=== PATIENT | female | born 1990 | race Caucasian/White ===

== ENCOUNTER 2016-06-15 19:56 | Emergency (ER) ==
--- NOTE | 2016-06-15 20:59 | PROVIDER DOCUMENTATION ---
HPI-General Adult - General Chief Complaint: General Adult Stated Complaint: GENERAL Time Seen by Provider: 06/15/16 20:45 Allergies/Adverse Reactions: Patient Allergies Allergy/AdvReac Type Severity Reaction Status Date / Time egg Allergy Unknown Verified 06/15/16 22:49 Sulfa (Sulfonamide Allergy Unknown Verified 06/15/16 22:49 Antibiotics) amoxicillin [Amoxicillin] AdvReac Severe HEADACHE Verified 06/15/16 22:49 Home Medications: Home Medication List Medication Instructions Recorded Confirmed Last Taken Type Desogestrel-Ethinyl Estradiol 1 each PO DAILY 07/17/12 06/15/16 06/15/16 History [Apri] - History of Present Illness -Gen Adult Nature of Presenting Problems: Pt has multiple complaints. SOB, leg pain, night sweats, and lumps in left breasts for which she is seeing an obgyn and is going to have a mammogram. She denies acute SOB but is on BC and worried about clots Review of Systems - Adult - REVIEW OF SYSTEMS - ADULT Constitutional: reports: see HPI, fatique, night sweats. denies: chills, fever , weight gain, weight loss Eyes: reports: no symptoms reported. denies: discharge, dry eyes, decreased vision, blurred vision, double vision, eye pain, redness Ears, Nose, Mouth & Throat: reports: no symptoms reported. denies: ear discharge, hearing loss, tinnitus, sinus problem, nose pain, mouth swelling, hoarseness, throat swelling Cardiovascular: reports: no symptoms reported. denies: chest pain, edema, heart murmur, irregular heart rate, orthopnea, palpitations, poor circulation, PND, syncope Respiratory: reports: see HPI, shortness of breath. denies: chronic cough, cough, dyspnea on exertion, excessive sputum production, hemoptysis, pleurisy, wheezing Gastrointestinal: reports: no symptoms reported. denies: abdominal pain, hematemesis, constipation, diarrhea, frequent heartburn, nausea, rectal bleeding , vomiting Genitourinary: reports: no symptoms reported. denies: dysuria, discharge, frequency, flank pain, frequent UTI's, hematuria, incontinence, urinary retention, urgency Musculoskeletal: reports: no symptoms reported. denies: frequent leg cramps, joint pain, joint swelling, muscle aches, muscle weakness, neck pain Integumentary: reports: no symptoms reported. denies: hives, hair loss, itching , nail changes, rash, skin sores/ulcer, skin thickening Neurological: reports: no symptoms reported. denies: ataxia, dizziness/vertigo , headache/migraines, loss of balance, numbness, seizure, slurred speech, syncope, tremors Psychiatric: reports: no symptoms reported. denies: anxiety, alcohol/drug dependence, depression, emotional problems, panic attacks, suicidal thoughts Endocrine: reports: no symptoms reported. denies: change in skin pigment, excessive sweating, goiter, cold intolerance, heat intolerance, increased hunger , increased thirst, polyuria Hematologic/Lymphatic: reports: no symptoms reported. denies: blood clots, easy bruising, low blood count, lymphedema, prolonged bleeding, transfusions Allergic/Immunologic: reports: no symptoms reported. denies: allergic reactions , allergic rhinitis, asthma, eczema, frequent infections, hay fever, positive PPD, urticaria All Other Systems: Reviewed and Negative (lumps in left breast) Past History - Adult - PAST MEDICAL HISTORY-ADULT Review of Records: reports: Old Records Reviewed, Nursing Assessment Review, Medications Reviewed, Social history reviewed & non-contributory. Major Childhood Illnesses: reports: denies history Cardiovascular: reports: denies history Respiratory: reports: bronchitis Gastrointestinal: reports: denies history Obstetrical/Gynecological: reports: denies history Genitourinary: reports: denies history Musculoskeletal: reports: denies history Neurological: reports: denies history Endocrine/Immune: reports: denies history Other Conditions: reports: denies history - PRIOR SURGERIES/PROCEDURES Surgical/Procedure History: reports: tonsillectomy, other (ear tubes) - PRIOR HOSPITALIZATIONS Prior Hospitalizations: reports: for other non-related - IMMUNIZATION STATUS Childhood Immunizations: See Nurse Assessment Flu Vaccine: See Nurse Assessment - FAMILY HISTORY Family History: reviewed, not pertinent - SOCIAL HISTORY Substance Use: none/never Alcohol Use Frequency: never Living Situation: family Physical Exam-General - PHYSICAL EXAM-ADULT Initial Vital Signs Reviewed: Yes - CONSTITUTIONAL General Appearance: appears well, alert, no apparent distress - EYES Eyes: PERRL/EOMI, pink conjunctivae - HEAD, EARS, NOSE, MOUTH & THROAT HENMT: normocephalic/atraumatic, moist mucous membranes, normal ENT inspection - NECK Neck: non-tender, full range of motion - RESPIRATORY Respiratory: chest non-tender, lungs clear, normal breath sounds, no pleuratic chest pain, no respiratory distress, no accessory muscle use - CARDIOVASCULAR Cardiovascular: normal peripheral pulses, regular rate, rhythm - CHEST (BREASTS) Chest/Breast: tenderness, mass/lump noted (left breast x 3 and right x 1 they were painful to palpation). 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, grossly normal - PSYCHIATRIC Psych/Mental Status: normal mood/affect, normal thought content, normal thought process, oriented x 3 Progress - PLAN OF CARE/RESULTS Progress/Plan/Lab Results: Laboratory Tests 06/15/16 06/15/16 06/15/16 22:40 22:40 22:40 WBC 12.93 H RBC 3.99 L Hgb 11.5 L Hct 35.1 L MCV 88.0 MCH 28.8 MCHC 32.8 L RDW Std Deviation 12.7 Plt Count 231 MPV 11.1 H Immature Gran % (Auto) 0.2 Neut % (Auto) 58.4 Lymph % (Auto) 32.3 Randolph % (Auto) 8.0 Eos % (Auto) 0.9 Baso % (Auto) 0.2 Immature Gran # (Auto) 0.02 Neut # (Auto) 7.56 H Lymph # (Auto) 4.18 H Randolph # (Auto) 1.03 H Eos # (Auto) 0.11 Baso # (Auto) 0.03 D-Dimer Sodium 142 Potassium 3.8 Chloride 103 Carbon Dioxide 26 Anion Gap 13 BUN 14 Creatinine 0.6 Estimated GFR/1.73 m2 > 60 BUN/Creatinine Ratio 23 Glucose 90 Calculated Osmolality 283 Calcium 9.0 Total Bilirubin 0.13 L AST 13 ALT 12 Alkaline Phosphatase 71 Total Protein 7.0 Albumin 4.2 Globulin 2.8 Albumin/Globulin Ratio 1.5 Urine Source Urine Color Urine Turbidity Urine pH Ur Specific [place] Urine Protein Ur Glucose (Stick) Ur Ketones (Stick) Urine Blood Urine Nitrite Urine Bilirubin Urobilinogen Dipstick Urine Leukocytes Urine WBC (Auto) Urine RBC (Auto) U Epithel Cells (Auto) Urine Bacteria (Auto) Urine Test NEGATIVE 06/15/16 06/15/16 22:40 23:05 WBC RBC Hgb Hct MCV MCH MCHC RDW Std Deviation Plt Count MPV Immature Gran % (Auto) Neut % (Auto) Lymph % (Auto) Randolph % (Auto) Eos % (Auto) Baso % (Auto) Immature Gran # (Auto) Neut # (Auto) Lymph # (Auto) Randolph # (Auto) Eos # (Auto) Baso # (Auto) D-Dimer 0.22 Sodium Potassium Chloride Carbon Dioxide Anion Gap BUN Creatinine Estimated GFR/1.73 m2 BUN/Creatinine Ratio Glucose Calculated Osmolality Calcium Total Bilirubin AST ALT Alkaline Phosphatase Total Protein Albumin Globulin Albumin/Globulin Ratio Urine Source CLEAN CATCH Urine Color YELLOW Urine Turbidity CLEAR Urine pH 6.0 Ur Specific [place] 1.024 Urine Protein NEGATIVE Ur Glucose (Stick) NEGATIVE Ur Ketones (Stick) NEGATIVE Urine Blood TRACE A Urine Nitrite NEGATIVE Urine Bilirubin NEGATIVE Urobilinogen Dipstick NORMAL Urine Leukocytes NEGATIVE Urine WBC (Auto) <10 Urine RBC (Auto) <10 U Epithel Cells (Auto) <10 Urine Bacteria (Auto) NEGATIVE Urine Test Orders Category Date Time Status cxr [CHEST-2 VIEWS] [RAD] Stat Exams 06/15/16 20:56 Taken CBC WITH ELECTRONIC DIFF [HEME] Stat Lab 06/15/16 22:40 Completed COMPREHENSIVE METABOLIC PANEL [CHEM] Stat Lab 06/15/16 22:40 Completed Ddimer [D-DIMER] [CHEM] Stat Lab 06/15/16 22:40 Completed TEST-URINE [PREG] Stat Lab 06/15/16 22:40 Completed URINALYSIS W/POSS RFLX CULT [URINALYSIS] Stat Lab 06/15/16 23:05 Completed Alprazolam [Xanax] Med 06/15/16 22:30 Discontinued 0.5 mg PO NOW ONE Vital Signs - 24 hr 06/15/16 20:15 Temperature 97.8 F Pulse Rate 83 Respiratory 18 Rate Blood Pressure 118/84 O2 Sat by Pulse 99 Oximetry - XRAY 1 XRAY Study: Chest XRAY Interpretation: lungs hyperinflated (hcb) Departure - Departure Time of Disposition Order: 00:03 DIAGNOSIS: Complicated grief, Anxiety Disposition: HOME 01 Certified Medical Emergency: Emergent Condition: Good Additional Instructions: follow up with PCP ED Follow Up Instructions: You have been treated by a care provider in the Emergency Department. These instructions are being provided to you so you can have an understanding of how to care for yourself upon discharge. Upon discharge from the Emergency Department, you are responsible for making arrangements for follow-up care by a physician of your choice. Take all prescribed medications as directed. Return to the Emergency Department immediately for any new or worsening symptoms. You may call the Physician Referral phone number at [phone] to obtain a list of Physicians who are taking new patients. Referrals: Duy Bell MD [Primary Care Provider] - Attestation - Physician/ NABILA Attestation Patient care was provided by Advanced Practice Provider:: Yes Advanced Practice Provider:: Shun Nelson Advanced Practice Provider documentation review:: The Mid-level provider documentation, treatment plan and medical decision making was reviewed by the physician who agrees with all treatment and medical decision making by the MLP.
[2016-06-15] MEDS ORDERED: XANAX PO ONE (22:30)
[2016-06-15 23:01] LABS: MANUAL DIFF NEEDED? NO
[2016-06-15 23:04] LABS: BASO% 0.2 % (0.0-0.8); EOS# 0.11 X1000 (0.0-0.7); EOS% 0.9 % (0.0-10.0); HEMATOCRIT 35.1 % (37.0-47.0); HEMOGLOBIN 11.5 g/dL (12.0-16.0); IMM GRAN# 0.02 X1000 (0.0-0.04); IMM GRAN% 0.2 % (0.0-0.5); LYMPH# 4.18 X1000 (1.2-3.4); LYMPH% 32.3 % (20.5-51.1); MCH 28.8 PG (27-31); MCHC 32.8 g/dL (33-37); MONO# 1.03 X1000 (0.11-0.59); MPV 11.1 FL (7.4-10.4); NEUT% 58.4 % (42.2-75.2); PLT 231 X1000 (130-400); RBC 3.99 XMIL (4.2-5.4)
[2016-06-15 23:40] LABS: AGAP 13; ALBUMIN 4.2 g/dL (3.5-5.0); ALKALINE PHOSPHATASE 71 U/L (32-104); BUN 14 mg/dL (8-22); CHLORIDE 103 mmol/L (98-107); COSMO 283; GOT 13 U/L (10-30); GPT 12 U/L (10-36); POTASSIUM 3.8 mmol/L (3.5-5.1); SODIUM 142 mmol/L (136-145); TCO2 26 mmol/L (25-35); TOTAL BILIRUBIN 0.13 mg/dL (0.20-1.00)
[2016-06-15 23:41] LABS: URINE CULTURE NEEDED? NO; URINE MICRO REVIEW NEEDED? NO; URINE SOURCE CLEAN CATCH
[2016-06-15 23:48] LABS: BILIRUBIN URINE NEGATIVE (NEGATIVE); BLOOD URINE TRACE (NEGATIVE); COLOR YELLOW; GLUCOSE URINE NEGATIVE (NEGATIVE); LEUKOCYTES URINE NEGATIVE (NEGATIVE); NITRITE URINE NEGATIVE (NEGATIVE); PROTEIN URINE NEGATIVE (NEGATIVE); SP GRAVITY URINE 1.024; TURBIDITY URINE CLEAR (CLEAR); UROBILINOGEN URINE NORMAL (NORMAL)
[2016-06-15 23:50] LABS: UR EPITHELIAL CELLS <10 /HPF (<10); URINE BACTERIA NEGATIVE /HPF; URINE RBC <10 /HPF (<10); URINE WBC <10 /HPF (<10)
[2016-06-16 01:18] VITALS: BP 117/83
--- NOTE | 2016-06-16 13:08 | Diag Imaging Result Document ---
PROCEDURE NAME: CHEST-2 VIEWS - 06/15/2016 CHEST, 2 VIEWS: COMPARISON: 10/21/2013. FINDINGS: Heart size is normal. There is a tiny granuloma from old granulomatous disease at the left base. The lungs, otherwise, appear clear. The lungs are possibly slightly hyperexpanded. There is no pleural effusion or pneumothorax identified. There is mild thoracic levoscoliosis noted. IMPRESSION: Possible slightly hyperexpanded lungs. No other evidence of acute disease.
== END 2016-06-16 01:16 | disposition home or self-care (01) ==
LOC: ED 19:56
DX: F43.21 Adjustment disorder with depressed mood (principal); F41.9 Anxiety disorder, unspecified; R06.02 Shortness of breath; M79.606 Pain in leg, unspecified; R61 Generalized hyperhidrosis; N63 Unspecified lump in breast; R53.83 Other fatigue
CPT/HCPCS: 71020; 80053; 81001; 81025; 85025; 85379; 99283